=== PATIENT | female | born 1970 | race African-American/Black ===

== ENCOUNTER 2016-10-21 16:08 | Emergency (ER) | payer OTHER ==
[~2016-10-21] VITALS: Ht 157.5 cm; Wt 90.0 kg
[~2016-10-21 16:08] MED LIST: BACTRIM,SEPT1 TABLET PO; FLEXERIL5 MG PO; HYDROCODON-ACE1 EAC7 PO; INDOCIN50 MG PO; LYRICA75 MG PO; NOHOMEMEDS; NORCO 5/3251 TABLET PO; PERCOCET 5/31 TABLET PO; PREDNISONE10 MG PO; PREDNISONE20 MG PO; TESSALON PERLE100 MG PO; VALIUM5 MG PO; VENTOLIN HFA18 GM IH; ZITHROMAX250 MG PO; ZOLOFT100 MG
[2016-10-21 16:52] LABS: HEMATOCRIT 33.6 % (36.0-46.0); MCH 25.2 PG (29.0-34.0); MCHC 33.6 G/DL (30.0-36.0); MCV 74.8 FL (83-99); MEAN PLAT.VOLUME 9.2 uM^3 (9.5-12.4); PLATELET COUNT 306 K/uL (156-360); RBC DIS.WIDTH-CV 18.9 % (11.8-14.6); RBC DIS.WIDTH-SD 49.8 % (39-53); RED BLOOD COUNT 4.49 M/uL (3.80-5.20); WHITE BLOOD COUNT 5.8 K/uL (4.1-10.2)
[2016-10-21 17:05] LABS: CHLORIDE 109 mEq/L (99-109); POTASSIUM 3.6 mEq/L (3.7-5.4); SODIUM 142 mEq/L (136-147)
[2016-10-21 17:06] LABS: GLUCOSE 76 mg/dL (70-99)
[2016-10-21 17:08] LABS: ANION GAP 5 MEQ/L (2-14)
[2016-10-21 17:10] LABS: GFR ESTIMATE (CALCULATED) > 59 mL/min/
[2016-10-21 17:11] LABS: UREA NITROGEN (BUN) 8 mg/dL (9-23)
[2016-10-21 18:25] LABS: QUANTITATIVE HCG < 4.0 MIU/ML
[2016-10-21] MEDS ORDERED: PREDNISONE20 MG PO (20:02)
[2016-10-21] MEDS ORDERED: ZOFRAN ODT4 MG PO (20:02)
[2016-10-21 20:16] VITALS: BP 140/93
== END 2016-10-21 20:18 | disposition home or self-care (01) ==
LOC: RME 16:08 → EME 16:08 → RME 20:18
DX: G43.909 Migraine, unspecified, not intractable, without status migrainosus (principal); I49.9 Cardiac arrhythmia, unspecified; E11.9 Type 2 diabetes mellitus without complications; Z86.69 Personal history of other diseases of the nervous system and sense organs; Z88.6 Allergy status to analgesic agent; Z88.8 Allergy status to other drugs, medicaments and biological substances
CPT/HCPCS: 71020; 80048; 84702; 85027; 93005; 99281; 99285; J0780; J1100; J1885; J7030

== ENCOUNTER 2017-01-21 08:34 | Day surgery (SDC) | payer OTHER ==
[~2017-01-21] VITALS: Ht 157.5 cm; Wt 89.0 kg
[~2017-01-21 08:34] MED LIST changes: +CLARITIN,ALAVAR10 MG PO; +FLONASE ALLERG9.9 ML BOTH NARES; +KLONOPIN0.5 M1 PO; +LORCET PLUS 7.1 EACH PO; +NEURONTIN300 MG PO; +ZOFRAN ODT4 MG PO; +ZOLOFT100 MG PO
[2017-01-21 08:58] VITALS: BP 137/90
[2017-01-21] MEDS ORDERED: VICODIN 5-3001 EACH PO (09:19)
[2017-01-21 12:37] VITALS: BP 132/89
[2017-01-22] MEDS ORDERED: ULTRAM50 MG PO (15:35)
== END 2017-01-21 13:05 | disposition home or self-care (01) ==
LOC: SDC 08:34
PROC: 0UDB8ZX Extraction of Endometrium, Via Natural or Artificial Opening Endoscopic, Diagnostic (ICD-10-PCS; principal; 2017-01-21)
DX: N92.0 Excessive and frequent menstruation with regular cycle (principal); N85.4 Malposition of uterus; Z68.36 Body mass index [BMI] 36.0-36.9, adult; Z82.49 Family history of ischemic heart disease and other diseases of the circulatory system; Z83.3 Family history of diabetes mellitus
CPT/HCPCS: 88305; J0330; J2250; J3010

== ENCOUNTER 2017-01-22 11:50 | Emergency (ER) | payer OTHER ==
[~2017-01-22] VITALS: Ht 157.5 cm; Wt 91.7 kg
[~2017-01-22 11:50] MED LIST changes: +VICODIN 5-3001 EACH PO
[2017-01-22 12:52] LABS: HEMATOCRIT 33.3 % (36.0-46.0); MCH 25.1 PG (29.0-34.0); MCHC 32.4 G/DL (30.0-36.0); MCV 77.4 FL (83-99); MEAN PLAT.VOLUME 9.2 uM^3 (9.5-12.4); PLATELET COUNT 309 K/uL (156-360); RBC DIS.WIDTH-SD 50.2 % (39-53); WHITE BLOOD COUNT 6.1 K/uL (4.1-10.2)
[2017-01-22 13:03] LABS: CHLORIDE 111 mEq/L (99-109); POTASSIUM 3.7 mEq/L (3.7-5.4); SODIUM 142 mEq/L (136-147)
[2017-01-22 13:04] LABS: GLUCOSE 81 mg/dL (70-99)
[2017-01-22 13:06] LABS: ANION GAP 7 MEQ/L (2-14)
[2017-01-22 13:08] LABS: GFR ESTIMATE (CALCULATED) > 59 mL/min/
[2017-01-22 13:09] LABS: UREA NITROGEN (BUN) 7 mg/dL (9-23)
[2017-01-22 13:13] LABS: TROP-I INTERPRETATION NEGATIVE; TROPONIN-I < 0.01 ng/mL (0.0-0.30)
[2017-01-22 14:30] LABS: ADD MIUA? YES; BILIRUBIN NEGATIVE; BLOOD SMALL; COLOR STRAW ((YELLOW)); GLUCOSE (STRIP) NEGATIVE; KETONES 5; LEUKOCYTES TRACE; NITRITE NEGATIVE; PROTEIN (STRIP) NEGATIVE; SPECIFIC GRAVITY 1.011 (1.000-1.030); UROBILINOGEN 0.2 MG/DL (0.2-1.0)
[2017-01-22 14:33] LABS: BACTERIA NONE SEEN /HPF; EPITHELIAL CELLS 1+ /HPF; MUCUS TRACE /LPF; RED BLOOD CELLS 0-5 /HPF (0-5); WHITE BLOOD CELLS 0-5 /HPF (0-5)
[2017-01-22 15:27] LABS: INFLUENZA A VIRAL ANTIGEN NEGATIVE; INFLUENZA B VIRAL ANTIGEN NEGATIVE
[2017-01-22] MEDS ORDERED: ULTRAM50 MG PO (15:35)
[2017-01-22 16:09] VITALS: BP 176/88
== END 2017-01-22 16:10 | disposition home or self-care (01) ==
LOC: EME 11:50
PROVIDERS: Physician Assistant
DX: G89.18 Other acute postprocedural pain (principal); Z98.890 Other specified postprocedural states; R11.0 Nausea; J02.9 Acute pharyngitis, unspecified; J45.909 Unspecified asthma, uncomplicated; Z87.891 Personal history of nicotine dependence
CPT/HCPCS: 71020; 80048; 81003; 84484; 85027; 87502; 87651 90; 93005; 99281; 99284

== ENCOUNTER 2017-02-11 05:15 | Day surgery (SDC) | payer OTHER ==
[~2017-02-11] VITALS: Ht 157.5 cm; Wt 85.7 kg
[~2017-02-11 05:15] MED LIST changes: +ULTRAM50 MG PO
[2017-02-11 06:09] VITALS: BP 116/87
[2017-02-11 06:16] LABS: EOSINOPHIL (%) 1.7 % (0-5); EOSINOPHIL COUNT 0.1 K/uL (0-0.3); HEMATOCRIT 32.5 % (36.0-46.0); IMMATURE GRANULOCYTE (%) 0.3 % (0.0-0.7); INSTRUMENT ABS NEUTROPHIL CT 4.4 K/uL; LYMPHOCYTE COUNT 2.4 K/uL (1.0-2.8); MCH 24.8 PG (29.0-34.0); MCHC 32.6 G/DL (30.0-36.0); MCV 76.1 FL (83-99); MEAN PLAT.VOLUME 9.6 uM^3 (9.5-12.4); MONOCYTE (%) 8.6 % (3-12); MONOCYTE COUNT 0.7 K/uL (0-0.8); NEUTROPHIL (%) 57.4 % (45-76); NEUTROPHIL COUNT 4.4 K/uL (1.8-6.4); PLATELET COUNT 334 K/uL (156-360); RBC DIS.WIDTH-CV 17.3 % (11.8-14.6); RBC DIS.WIDTH-SD 46.7 % (39-53); RED BLOOD COUNT 4.27 M/uL (3.80-5.20); WHITE BLOOD COUNT 7.7 K/uL (4.1-10.2)
[2017-02-11] MEDS ORDERED: PERCOCET 5/31 TABLET PO (07:29)
[2017-02-11 09:10] VITALS: BP 153/97
[2017-02-11 09:59] VITALS: BP 159/108
== END 2017-02-11 10:25 | disposition home or self-care (01) ==
LOC: SDC 05:15
PROVIDERS: Obstetrics & Gynecology
PROC: 0U5B8ZZ Destruction of Endometrium, Via Natural or Artificial Opening Endoscopic (ICD-10-PCS; principal; 2017-02-11)
DX: N92.0 Excessive and frequent menstruation with regular cycle (principal); N93.8 Other specified abnormal uterine and vaginal bleeding; N85.4 Malposition of uterus; Z68.36 Body mass index [BMI] 36.0-36.9, adult; Z98.51 Tubal ligation status; Z88.8 Allergy status to other drugs, medicaments and biological substances; Z82.49 Family history of ischemic heart disease and other diseases of the circulatory system; Z83.3 Family history of diabetes mellitus
CPT/HCPCS: 84702; 85025; 86900; 86901; J1100; J1885; J2250; J2310; J2405; J3010